=== PATIENT | female | born 1985 | race African-American/Black ===

== ENCOUNTER 2019-12-18 17:37 | Emergency (ER) | payer OTHER ==
[~2019-12-18] VITALS: Ht 160 cm; Wt 113.0 kg
[2019-12-18 21:27] LABS: BASOPHILS % 0.5 % (0.0-2.0); EOSINOPHILS % 2.2 % (0.0-5.0); HEMATOCRIT. 30.1 % (36.0-48.0); HEMOGLOBIN. 9.6 g/dL (12.0-16.0); LYMPHOCYTES % 21.1 % (20.0-50.0); MEAN CORPUSCULAR HEMOGLOBIN 21.6 pg (28.0-32.0); MEAN CORPUSCULAR VOLUME 68.1 fL (81.0-99.0); MEAN PLATELET VOLUME 9.5 fl (7.4-10.4); MONOCYTES % 7.2 % (2.0-8.0); PLATELET 362 x1000/uL (130-400); RED BLOOD CELL COUNT 4.42 mill/uL (4.2-5.4); RED CELL DISTRIBUTION WIDTH 18.6 % (11.6-14.6)
[2019-12-18] MEDS ORDERED: IBUPROFEN 600MG TABLET PO ONE (21:30)
[2019-12-18] MEDS ORDERED: ACETAMINOPHEN 325MG TABLET PO ONE (21:30)
[2019-12-18 21:33] LABS: CHLORIDE 108 mEq/L (98-107)
[2019-12-18 21:40] LABS: CLARITY URINE CLEAR (CLEAR); COLOR URINE YELLOW (YELLOW); KETONES URINE NEGATIVE (NEGATIVE); LEUKOCYTE ESTERASE URINE NEGATIVE (NEGATIVE); NITRITE URINE NEGATIVE (NEGATIVE); OCCULT BLOOD URINE NEGATIVE (NEGATIVE); PROTEIN URINE NEGATIVE (NEGATIVE); SPECIFIC GRAVITY URINE 1.027 (1.005-1.030); UROBILINOGEN URINE 0.2 E.U./dL (0.2-1.0)
[2019-12-18 21:58] LABS: PLATELET ESTIMATE NORMAL
[2019-12-18] MEDS ORDERED: LIDOCAINE 5% PATCH TOP SCH (22:00)
[2019-12-18 23:00] VITALS: BP 122/60
== END 2019-12-18 23:03 | disposition home or self-care (01) ==
LOC: ER 17:37
DX: S13.4XXA Sprain of ligaments of cervical spine, initial encounter (principal); S70.312A Abrasion, left thigh, initial encounter; D50.9 Iron deficiency anemia, unspecified; Z88.0 Allergy status to penicillin; V49.40XA Driver injured in collision with unspecified motor vehicles in traffic accident, initial encounter; Y93.89 Activity, other specified; Y92.89 Other specified places as the place of occurrence of the external cause; Y99.8 Other external cause status
CPT/HCPCS: 36415; 80053; 81003; 81025; 85025; 93005; 99285